=== PATIENT | male | born 2000 | race Caucasian/White ===

== ENCOUNTER 2019-12-11 15:37 | Emergency (ER) | payer OTHER ==
[~2019-12-11] VITALS: Ht 195.6 cm; Wt 68.5 kg
[2019-12-11 15:40] VITALS: BP_SYST 120
[2019-12-11] MEDS ORDERED: LORazepam 1 MG TABLET PO ONE (15:45)
[2019-12-11 16:05] LABS: EOSINOPHILS # (AUTO) 0.1 K/uL (0.0-0.4); EOSINOPHILS % (AUTO) 1.9 % (0.0-4.0); HEMOGLOBIN 14.3 g/dL (14.0-18.0); LYMPHOCYTES # (AUTO) 1.1 K/uL (1.0-5.5); LYMPHOCYTES % (AUTO) 24.5 % (20.5-51.5); MEAN CORPUSCULAR HEMOGLOBIN 32 pg (27-31); MEAN CORPUSCULAR HGB CONC 34 % (32-36); MEAN CORPUSCULAR VOLUME 93 fL (79.0-98.0); MONOCYTES # (AUTO) 0.4 K/uL (0.0-1.0); NEUTROPHILS # (AUTO) 2.8 K/uL (1.8-7.7); NEUTROPHILS % (AUTO) 62.6 % (40.0-70.0); PLATELET COUNT (AUTO) 253 K/uL (130-430); RED BLOOD CELL COUNT(AUTO) 4.54 MIL/uL (4.2-6.2); RED CELL DISTRIBUTION WIDTH 12.5 % (9.0-15.0); WHITE BLOOD COUNT (AUTO) 4.4 K/uL (4.5-11.0)
[2019-12-11 16:26] LABS: ANION GAP 8 (5-15); CHLORIDE 104 mmol/L (98-107); CREATININE 1.19 mg/dL (0.55-1.30); GLUCOSE 106 mg/dL (70-99); POTASSIUM 3.5 mmol/L (3.5-5.1); SODIUM SERUM 140 mmol/L (136-145); UREA NITROGEN, BLOOD 11 mg/dL (8-21)
[2019-12-11 16:28] LABS: GFR AFRICAN AMERICAN 100 mL/min (>90)
[2019-12-11 16:35] LABS: ALANINE AMINOTRANSFERASE 16 U/L (12-78); ASPARTATE AMINOTRANSFERASE 14 U/L (10-37); TOTAL BILIRUBIN 0.7 mg/dL (0.0-1.0)
[2019-12-11 17:11] LABS: FREE T4 (FREE THYROXINE) 1.8 ng/dl (0.8-1.5)
[2019-12-11 17:12] LABS: THYROID STIMULATING HORMONE 1.18 uIu/mL (0.36-3.74)
[2019-12-11 17:15] LABS: BARBITURATE, URINE NEGATIVE (NEG <=200); BENZODIAZEPINE, URINE NEGATIVE (NEG <=150); CANNABINOID, URINE NEGATIVE (NEG <=50); COCAINE, URINE NEGATIVE (NEG <=150); METHAMPHETAMINES SCREEN,URINE NEGATIVE (NEG <=500); OPIATE, URINE NEGATIVE (NEG <=100); PHENCYCLIDINE SCREEN,URINE NEGATIVE (NEG <=25); UR TRICYCLIC ANTIDEPRESSANTS NEGATIVE (NEG <=300); URINE AMPHETAMINE NEGATIVE (NEG <=500); URINE METHADONE NEGATIVE (NEG <=200); URINE OXYCODONE SCREEN NEGATIVE (NEG <=100); URINE PROPOXYPHENE SCREEN NEGATIVE (NEG <=300)
[2019-12-11 18:30] VITALS: BP_SYST 122
== END 2019-12-11 18:00 | disposition home or self-care (01) ==
LOC: SED 15:37
DX: R00.2 Palpitations (principal); E05.90 Thyrotoxicosis, unspecified without thyrotoxic crisis or storm; F41.9 Anxiety disorder, unspecified
CPT/HCPCS: 36415; 71045; 80053; 80307; 84439; 84443-TC; 84484; 85025; 93005; 99285

== ENCOUNTER 2019-12-14 21:33 | Emergency (ER) | payer OTHER ==
[~2019-12-14] VITALS: Ht 195.6 cm; Wt 74.8 kg
[2019-12-14 21:49] VITALS: BP_SYST 14
[2019-12-14] MEDS ORDERED: LORazepam 2 MG/ML VIAL IVP ONE (23:00)
[2019-12-14 23:55] LABS: BASOPHILS % (AUTO) 0.6 % (0.0-2.0); EOSINOPHILS # (AUTO) 0.1 K/uL (0.0-0.4); EOSINOPHILS % (AUTO) 1.1 % (0.0-4.0); HEMATOCRIT 42.4 % (36-54); HEMOGLOBIN 14.4 g/dL (14.0-18.0); LYMPHOCYTES % (AUTO) 17.9 % (20.5-51.5); MEAN CORPUSCULAR HEMOGLOBIN 32 pg (27-31); MEAN CORPUSCULAR HGB CONC 34 % (32-36); MEAN CORPUSCULAR VOLUME 92 fL (79.0-98.0); MONOCYTES # (AUTO) 0.5 K/uL (0.0-1.0); MONOCYTES % (AUTO) 9.4 % (1.7-9.3); NEUTROPHILS # (AUTO) 4.1 K/uL (1.8-7.7); PLATELET COUNT (AUTO) 251 K/uL (130-430); RED BLOOD CELL COUNT(AUTO) 4.58 MIL/uL (4.2-6.2); RED CELL DISTRIBUTION WIDTH 12.5 % (9.0-15.0); WHITE BLOOD COUNT (AUTO) 5.8 K/uL (4.5-11.0)
[2019-12-15 00:19] LABS: CALCIUM 9.4 mg/dL (8.4-11.0); CREATININE 1.26 mg/dL (0.55-1.30); FREE T4 (FREE THYROXINE) 1.9 ng/dl (0.8-1.5); POTASSIUM 3.5 mmol/L (3.5-5.1); THYROID STIMULATING HORMONE 2.66 uIu/mL (0.36-3.74)
[2019-12-15 00:58] VITALS: BP_SYST 124
[2019-12-15] MEDS ORDERED: HYDR50TA61 PO (17:56)
== END 2019-12-15 00:58 | disposition home or self-care (01) ==
LOC: SED 21:33
DX: F41.9 Anxiety disorder, unspecified (principal); R00.2 Palpitations; E03.9 Hypothyroidism, unspecified
CPT/HCPCS: 36415; 80048; 84439; 84443; 85025; 96374; 99283; J2060

== ENCOUNTER 2019-12-15 08:02 | Emergency (ER) | payer OTHER ==
[~2019-12-15] VITALS: Ht 195.6 cm; Wt 75.3 kg
[2019-12-15 08:02] VITALS: BP_SYST 134
--- NOTE | 2019-12-15 08:02 | NUR ---
BROUGHT BACK TO BED #7 AND TRIAGED. REPORT GIVEN TO GELY
--- NOTE | 2019-12-15 08:17 | NUR ---
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
--- NOTE | 2019-12-15 08:17 | NUR ---
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
--- NOTE | 2019-12-15 08:22 | NUR ---
EKG performed at by RAMOS Osorio. Dr. Poole given copy of EKG for review.
--- NOTE | 2019-12-15 08:32 | NUR ---
Patient given written and verbal discharge instructions and verbalizes understanding. ER discussed with patient the results and treatment provided. Patient in stable condition. ID arm band removed. Opportunity for questions provided and answered. Medication side effect fact sheet provided.
[2019-12-15 08:34] VITALS: BP_SYST 123
[2019-12-15] MEDS ORDERED: HYDR50TA61 PO (17:56)
== END 2019-12-15 08:32 | disposition home or self-care (01) ==
LOC: SED 08:02
DX: R00.2 Palpitations (principal); F41.9 Anxiety disorder, unspecified
CPT/HCPCS: 93005; 99283

== ENCOUNTER 2019-12-15 17:19 | Emergency (ER) | payer OTHER ==
[~2019-12-15] VITALS: Ht 195.6 cm; Wt 75.3 kg
--- NOTE | 2019-12-15 17:30 | NUR ---
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
--- NOTE | 2019-12-15 17:30 | NUR ---
Pt walked in to ER states "My heart is racing." Was seen here this morning and d/c'd with hydroxine prescription. Stated it made his heart race more, so he came back. V/S stable, afebrile. Resting in bed, will continue to monitor.
[2019-12-15 17:56] VITALS: BP_SYST 140
[2019-12-15] MEDS ORDERED: HYDR50TA61 PO (17:56)
--- NOTE | 2019-12-15 18:35 | NUR ---
DR SAM AT BEDSIDE FOR EVALUATION
--- NOTE | 2019-12-15 18:55 | NUR ---
FATHER IN ROOM WAITING TO SPEAK WITH DR SAM
--- NOTE | 2019-12-15 18:58 | NUR ---
DR SAM IN TO SPEAK WITH PATIENT AND PTS FATHER.
[2019-12-15 18:59] VITALS: BP_SYST 140
--- NOTE | 2019-12-15 19:00 | NUR ---
Patient given written and verbal discharge instructions and verbalizes understanding. ER MD discussed with patient the results and treatment provided. Patient in stable condition. ID arm band removed. Patient educated on pain management and to follow up with PMD. Pain Scale 0. Opportunity for questions provided and answered. Medication side effect fact sheet provided.
== END 2019-12-15 19:00 | disposition home or self-care (01) ==
LOC: SED 17:19
DX: R00.2 Palpitations (principal); F41.9 Anxiety disorder, unspecified
CPT/HCPCS: 99283

== ENCOUNTER 2020-08-30 17:26 | Emergency (ER) | payer OTHER ==
[~2020-08-30] VITALS: Ht 195.6 cm; Wt 74.8 kg
[~2020-08-30 17:26] MED LIST: HYDR50TA61 PO
[2020-08-30 17:29] VITALS: BP_SYST 127
[2020-08-30] MEDS ORDERED: MAG HYDROX/AL HYDROX/SIMETH 30 ML, DICYCLOMINE HCL 20 MG, LIDOCAINE VISCOUS 2% 15ML (PO... PO ONE ×3 (17:45)
[2020-08-30] MEDS ORDERED: FAMOTIDINE 20 MG TABLET PO ONE (19:30)
[2020-08-30] MEDS ORDERED: KETOROLAC TROMETHAMINE 60 MG/2 ML VIAL IM ONE (19:30)
[2020-08-30] MEDS ORDERED: FAMOTIDINE 20 MG TABLET ONE (19:34)
[2020-08-30 19:45] LABS: BASOPHILS % (AUTO) 0.6 % (0.0-2.0); EOSINOPHILS # (AUTO) 0.1 K/uL (0.0-0.4); EOSINOPHILS % (AUTO) 0.9 % (0.0-4.0); HEMATOCRIT 47.6 % (36-54); HEMOGLOBIN 16.5 g/dL (14.0-18.0); LYMPHOCYTES # (AUTO) 1.2 K/uL (1.0-5.5); LYMPHOCYTES % (AUTO) 14.5 % (20.5-51.5); MEAN CORPUSCULAR HEMOGLOBIN 32 pg (27-31); MEAN CORPUSCULAR HGB CONC 35 % (32-36); MEAN CORPUSCULAR VOLUME 91 fL (79.0-98.0); MONOCYTES # (AUTO) 0.6 K/uL (0.0-1.0); NEUTROPHILS # (AUTO) 6.2 K/uL (1.8-7.7); PLATELET COUNT (AUTO) 341 K/uL (130-430); RED BLOOD CELL COUNT(AUTO) 5.21 MIL/uL (4.2-6.2); RED CELL DISTRIBUTION WIDTH 12.6 % (9.0-15.0)
[2020-08-30 21:25] VITALS: BP_SYST 132
[2020-08-30 21:37] LABS: CALCIUM 10.1 mg/dL (8.4-11.0); CREATININE 1.16 mg/dL (0.55-1.30); POTASSIUM 4.7 mmol/L (3.5-5.1)
[2020-08-30 21:44] LABS: ALBUMIN 4.9 g/dL (3.4-4.8); TOTAL BILIRUBIN 1.2 mg/dL (0.0-1.0)
== END 2020-08-30 21:25 | disposition home or self-care (01) ==
LOC: SED 17:26
DX: R10.13 Epigastric pain (principal); I31.9 Disease of pericardium, unspecified; Z79.899 Other long term (current) drug therapy
CPT/HCPCS: 36415; 71045; 76700; 80053; 82550; 83690; 83880; 84484; 85025; 93005; 99285; J1885; J2001

== ENCOUNTER 2022-03-11 18:06 | Emergency (ER) | payer OTHER ==
[~2022-03-11] VITALS: Ht 195.6 cm; Wt 83.9 kg
[2022-03-11 18:15] VITALS: BP_SYST 124
--- NOTE | 2022-03-11 18:15 | NUR ---
BROUGHT INTO TRIAGE TENT AND TRIAGED. AWAITING AVAILABLE ER BED.
[2022-03-11 19:20] LABS: HEMATOCRIT 40.5 % (36-54); MEAN CORPUSCULAR HEMOGLOBIN 31 pg (27-31); MEAN CORPUSCULAR HGB CONC 34 % (32-36); MEAN CORPUSCULAR VOLUME 90 fL (79.0-98.0); PLATELET COUNT (AUTO) 134 K/uL (130-430); RED BLOOD CELL COUNT(AUTO) 4.49 MIL/uL (4.2-6.2); RED CELL DISTRIBUTION WIDTH 12.9 % (9.0-15.0)
--- NOTE | 2022-03-11 19:25 | NUR ---
SIMIN Singer at bedside.
[2022-03-11 19:26] LABS: WHITE BLOOD COUNT (AUTO) 1.8 K/uL (4.8-10.8)
--- NOTE | 2022-03-11 19:28 | NUR ---
Received report from Scott BEASLEY; assuming care of patient at this time.
[2022-03-11] MEDS ORDERED: IBUPROFEN 800 MG TABLET PO ONE (19:45)
--- NOTE | 2022-03-11 19:45 | NUR ---
Patient A/Ox4, VSS, ambulatory, resp even and unlabored. Patient in tent due to (+) covid test today. Patient states "I feel hot and I have a fever and would like something to help with that." Patient reports pain 01/16. Nad noted at this time. Will continue to monitor.
[2022-03-11 20:24] LABS: BAND % (MANUAL) 28 % (0-6); LYMPHOCYTES % (MANUAL) 8 % (20-46); MONOCYTES % (MANUAL) 20 % (0-11)
[2022-03-11 20:30] LABS: CALCIUM 8.3 mg/dL (8.4-11.0); CREATININE 1.24 mg/dL (0.55-1.30); POTASSIUM 3.7 mmol/L (3.5-5.1)
[2022-03-11 20:46] LABS: ALBUMIN 3.5 g/dL (3.4-4.8); C-REACTIVE PROTEIN QUANT 1.5 mg/dL (0-0.5); TOTAL BILIRUBIN 0.4 mg/dL (0.0-1.0)
--- NOTE | 2022-03-11 20:55 | NUR ---
Patient resting comfortably in bed with side rails raised. Nad noted at this time. Will continue to monitor.
[2022-03-11 20:56] LABS: BILIRUBIN,URINE NEGATIVE (NEGATIVE); BLOOD, URINE NEGATIVE (NEGATIVE); CLARITY/URINE CLEAR (CLEAR); COLOR,URINE YELLOW (YELLOW); GLUCOSE,URINE NEGATIVE (NEGATIVE); KETONES,URINE NEGATIVE (NEGATIVE); LEUKOCYTE ESTERASE ,URINE NEGATIVE (NEGATIVE); NITRITE, URINE NEGATIVE (NEGATIVE); PROTEIN URINE NEGATIVE (NEGATIVE); UROBILINOGEN,URINE 0.2 (0.2-1.0)
--- NOTE | 2022-03-11 21:22 | NUR ---
lab at bedside
--- NOTE | 2022-03-11 21:40 | NUR ---
Patient given written and verbal discharge instructions and verbalizes understanding. ER MD discussed with patient the results and treatment provided. Patient in stable condition. ID arm band removed. Rx of given. Patient educated on pain management and to follow up with PMD. Pain Scale 4/10. Opportunity for questions provided and answered. Medication side effect fact sheet provided. Patient A/Ox4, VSS, resp even and unlabored. NAD noted at this time.
[2022-03-11 21:42] VITALS: BP_SYST 124
== END 2022-03-11 21:42 | disposition home or self-care (01) ==
LOC: SED 18:06
DX: U07.1 COVID-19 (principal); D72.819 Decreased white blood cell count, unspecified; R50.9 Fever, unspecified; M54.2 Cervicalgia; R51.9 Headache, unspecified; Z79.899 Other long term (current) drug therapy
CPT/HCPCS: 36415; 70450-TC; 71045; 76376; 80053; 81003; 83605; 85007; 85027; 86140; 99285

== ENCOUNTER 2022-03-14 14:29 | Emergency (ER) | payer OTHER ==
[~2022-03-14] VITALS: Ht 195.6 cm; Wt 82.1 kg
[2022-03-14 14:35] VITALS: BP_SYST 103
--- NOTE | 2022-03-14 15:30 | NUR ---
ER at bedside examining patient.
[2022-03-14 15:47] LABS: HEMATOCRIT 43.9 % (36-54); HEMOGLOBIN 14.8 g/dL (14.0-18.0); MEAN CORPUSCULAR HEMOGLOBIN 31 pg (27-31); MEAN CORPUSCULAR HGB CONC 34 % (32-36); MEAN CORPUSCULAR VOLUME 91 fL (79.0-98.0); PLATELET COUNT (AUTO) 134 K/uL (130-430); RED CELL DISTRIBUTION WIDTH 13.4 % (9.0-15.0)
[2022-03-14 15:48] LABS: WHITE BLOOD COUNT (AUTO) 2.4 K/uL (4.8-10.8)
--- NOTE | 2022-03-14 15:48 | NUR ---
Pt returns to ER from previous visit on Wed as requested by MD RANGEL to recheck WBC.
[2022-03-14 15:58] LABS: CALCIUM 8.5 mg/dL (8.4-11.0); CREATININE 1.12 mg/dL (0.55-1.30); POTASSIUM 4.5 mmol/L (3.5-5.1)
--- NOTE | 2022-03-14 16:00 | NUR ---
Patient given written and verbal discharge instructions and verbalizes understanding. ER MD discussed with patient the results and treatment provided. Patient in stable condition.
[2022-03-14 16:04] LABS: ALBUMIN 3.5 g/dL (3.4-4.8); TOTAL BILIRUBIN 0.3 mg/dL (0.0-1.0)
[2022-03-14 16:20] LABS: ATYPICAL LYMPHOCYTES % 5 % (0-0); BAND % (MANUAL) 1 % (0-6); BASOPHILS % (MANUAL) 0 % (0-2); EOSINOPHILS % (MANUAL) 0 % (0-7); LYMPHOCYTES % (MANUAL) 42 % (20-46); MONOCYTES % (MANUAL) 17 % (0-11)
[2022-03-14 18:41] VITALS: BP_SYST 128
== END 2022-03-14 18:41 | disposition home or self-care (01) ==
LOC: SED 14:29
DX: D72.819 Decreased white blood cell count, unspecified (principal)
CPT/HCPCS: 36415; 80053; 85007; 85027; 99283

== ENCOUNTER 2022-06-23 12:12 | Emergency (ER) | payer OTHER ==
[~2022-06-23] VITALS: Ht 195.6 cm; Wt 84.8 kg
[2022-06-23 12:27] VITALS: BP_SYST 133
[2022-06-23 14:57] VITALS: BP_SYST 141
== END 2022-06-23 14:57 | disposition home or self-care (01) ==
LOC: SED 12:12
DX: J06.9 Acute upper respiratory infection, unspecified (principal); R50.9 Fever, unspecified; R07.89 Other chest pain; J02.9 Acute pharyngitis, unspecified; Z79.899 Other long term (current) drug therapy; Z20.822 Contact with and (suspected) exposure to COVID-19
CPT/HCPCS: 36415; 71045; 99284